=== PATIENT | female | born 1970 | race Caucasian/White ===

== ENCOUNTER 2025-03-23 09:53 | Emergency (ER) | payer BC, SELFPAY ==
[2025-03-23 09:58] VITALS: BP 152/91
--- NOTE | 2025-03-23 11:01 | ED.GENMED ---
History of Present Illness
General
Chief Complaint: Flank Pain
Source: patient
Exam Limitations: none
Time Seen by Provider: 03/23/25 10:23
Nursing documentation reviewed up to this point in time: agreed with
History of Present Illness
History of Present Illness:
55 yr old female with past medical history of right sided breast cancer s/p mastectomy treated at [place] presents to the ED for evaluation of left-sided back pain. Patient noticed the pain yesterday bending over putting her stockings on. She
has had pain since. It seems worse when she leans to the right. She denies any new short of breath she has chronic breathing issues and is on Breo.
She denies any actually new shortness of breath or chest pain. She denies any abdominal pain. She denies any urinary frequency urgency or hematuria. She is on letrozole and from this medication she coughs a lot. She denies any fever or chills.
She has no hx of kidney stones no prior hx of DVT/PE.
She is a non smoker .
Past History
Past History
ED Past Medical History: None
ED Past Surgical History: None
Phy Exam
General Physical Exam
General Presentation: no apparent distress
General age: appears stated age
General Skin: warm and dry
General Habitus: normal
General Hydration: appears well hydrated
Cardiovascular Exam
Cardiovascular Exam: regular rate/rhythm, no murmur and normal peripheral pulses
Pulmonary Exam
Pulmonary Exam: lungs clear, no respiratory distress and other (point tender to left posterior rib region/posterior back ; normal inspection no bruising ecchymosis or crepitus)
Gastrointestinal Exam
Gastrointestinal Exam: non tender and soft
Neurological Exam
Neurological Exam: alert and oriented x3
Musculoskeletal Exam
Musculoskeletal Exam: full ROM
Course
Orders/Labs/Results
Orders:
Orders
03/23/25 11:17
IV Insert/Care/Rem.- Treatment PRN
03/23/25 11:18
Electrocardiogram (*1) Stat
Reason for Study: Other
Other Reason for Exam: chest pain
Cardiac Monitoring- Treatment ONCE
EKG- Treatment ONCE
Ketorolac [Toradol] 15 mg IV NOW STA
03/23/25 11:24
Complete Blood Count/With Diff Urgent
Comprehensive Metabolic Panel Urgent
D-Dimer Urgent
03/23/25 12:01
Chest [CR Chest - 2 Views ] Urgent
Comment:
Reason For Exam: cp
03/23/25 12:36
UA Reflex to Culture [Urinalysis Reflex To Culture] Urgent
Date Specimen was Collected: 03/23/25
Time Specimen was Collected: 12:35
Urine Microscopic Reflex Cult Urgent
Urine Culture Urgent
LYNN Source: U
Specimen Description:
Date Specimen was Collected: 03/23/25
Time Specimen was Collected: 12:35
Abnormal Lab Results
03/23/25 03/23/25
11:24 12:36
MCV 79.3 L fL
(81.0-99.0)
MCH 25.9 L pg
(27.0-31.0)
MCHC 32.7 L g/dL
(33.0-37.0)
RDW 15.4 H %
(11.5-14.5)
Chloride 109 H mmol/L
(98-107)
BUN 19 H mg/dl
(7-17)
Creatinine 0.5 L mg/dL
(0.6-1.0)
Alkaline Phosphatase 127 H U/L
(38-126)
Leukocyte Esterase Rfl 1+ A
(Negative)
Urine Bacteria (Reflex) Few A
(Negative)
03/23/25 11:24
03/23/25 11:24
Vital Signs
Initial and Last Documented VS:
Initial Vital Signs
Temp Pulse Resp BP Pulse Ox
98.4 F 79 18 152/91 97
03/23/25 09:58 03/23/25 09:58 03/23/25 09:58 03/23/25 09:58 03/23/25 09:58
Last Documented Vital Signs
Temp Pulse Resp BP Pulse Ox
98.4 F 66 20 123/83 96
03/23/25 09:58 03/23/25 13:08 03/23/25 13:08 03/23/25 11:13 03/23/25 13:08
MDM/Problems Addressed
Differential Diagnosis Includes:
Not limited to musculoskeletal pain less likely kidney stone less likely PE
MDM/Problems Addressed:
Patient complains of pain to the left back/rib area since yesterday while bending over putting her stockings on. She denies any shortness of breath pain is slightly worse with movement and upon my palpation patient is very tender to this area. No
rash or crepitus. Patient does have a history of breast cancer and is on letrozole and D-dimer negative. She is not short of breath her lungs are clear she is not tachypneic not hypoxic no concerning signs of PE.
Patient was given a dose of Toradol which did help her symptoms.
She does report she slightly feels worse when she moves however it is improved
Will check urine and if urine negative plan to discharge home patient does not examine like a kidney stone at this time.
Chronic conditions affecting care:
History of breast cancer on letrozole
*Radiology
Radiology exam reviewed: radiology read reviewed
*Pulse Oximetry
SaO2: 97
Oxygen Mode of Delivery: Room air
Patient hypoxic: no
*Critical Care Note
Total Time (30-74mins, 75-104mins- exclusive of procedures): Not Applicable
ED Attending Note
-
Portions of this chart may have been created with voice recognition software.� Occasional wrong word or��sound alike� substitutions may have occurred due to the inherent limitations of voice recognition software.
Discharge Plan
Departure
Patient Disposition: Home (Routine Discharge)
Date of Disposition: 03/23/25
Time of Disposition: 13:53
Patient with high blood pressure during this ER visit?: Yes
Condition: Fair
Covid-19: Not Applicable
Discharge Problem:
Back pain
Instructions: Back Pain, BLOOD PRESSURE
Prescriptions:
No Action
norgestimate-ethinyl estradiol [Ortho Tri-Cyclen LO (28)] 0.18/0.215/0.25 mg-25 mcg tablet
1 tab PO DAILY
Referrals:
UNKNOWN - PT NOT,INTERVIEWE [Family Provider]
Activity Restrictions/Additional Instructions:
As discussed symptoms are consistent muscular back pain. You may take ibuprofen every 8 hours with food. Alternate with Tylenol. Ice for the first 24 hours followed by warm moist heat. Closely follow-up with family doctor return if any
worsening of symptoms
Interventions
Interventions:
*Risk Screen - Suicide Last Done: 03/23/25 09:58
*General Assessment Last Done: 03/23/25 09:58
*Neglect/Abuse Screening Last Done: 03/23/25 09:58
*ED- Fall Risk Assessment Last Done: 03/23/25 11:10
*ED COVID-19 Vaccine History Last Done: 03/23/25 11:14
MY-Hefvvm-Kbgbahnvxa Assessment Last Done: 03/23/25 11:07
ED-Female Genitourinary Assessment Last Done: 03/23/25 11:07
Discharge Date and Time
Print Language: MONGOLIAN
[2025-03-23 11:10] VITALS: BP 123/83
[2025-03-23 11:13] VITALS: BP 123/83
[2025-03-23 11:14] VITALS: BMI 39.0
[2025-03-23] MEDS: TORADOL 15 MG IV (11:28)
[2025-03-23 11:32] LABS: Hematocrit 39.5 % (37.0-47.0); Hemoglobin 12.9 g/dL (12.0-16.0); Mean Corp Hgb Conc. 32.7 g/dL (33.0-37.0); Mean Corpuscular Volume 79.3 fL (81.0-99.0); Nucleated Red Blood Cells % 0 %; Platelet Count 364 10^3/uL (130-400); Red Cell Dist. Width 15.4 % (11.5-14.5)
[2025-03-23 11:56] LABS: D-Dimer 0.45 ug/mlFEU (0.00-0.50)
[2025-03-23 11:57] LABS: ALT (SGPT) 20 U/L (0-35); AST (SGOT) 17 U/L (14-36); Albumin 4.1 g/dl (3.5-5.0); Alkaline Phosphatase 127 U/L (38-126); Blood Urea Nitrogen 19 mg/dl (7-17); Calcium 9.3 mg/dl (8.4-10.2); Carbon Dioxide 25 mmol/L (22-30); Chloride 109 mmol/L (98-107); Estimated Creatinine Clearance 118 ml/min; Glucose 92 mg/dl (70-99); Potassium 4.7 mmol/L (3.5-5.1); Sodium 139 mmol/L (135-145); Total Protein 7.8 g/dl (6.3-8.2); eGFR > 60.00
[2025-03-23 12:54] LABS: Urine Character Clear (Clear)
[2025-03-23 13:08] VITALS: BP 124/83
[2025-03-23 13:46] LABS: Urine Squamous Cell 0-2 /LPF (Few); Urine White Cell 0-2 /HPF (0-5)
[2025-03-23 14:00] VITALS: BP 114/99
[2025-03-23 14:13] VITALS: BP 114/99
== END 2025-03-23 14:20 | disposition home or self-care (01) ==
LOC: EMR 09:53
PROVIDERS: Nurse Practitioner; EMERGENCY PHYSICIAN Emergency Medicine; FAMILY PHYSICIAN Internal Medicine
DX: M54.9 Dorsalgia, unspecified (principal); Z79.811 Long term (current) use of aromatase inhibitors; Z85.3 Personal history of malignant neoplasm of breast; Z90.11 Acquired absence of right breast and nipple
CPT/HCPCS: 99284; 96374; 71046; 80053; 81003; 81015; 85025; 85379; 87086; 93005